=== PATIENT | male | born 1960 | race Caucasian/White ===

== ENCOUNTER 2017-11-29 17:08 | Emergency (ER) | payer MEDICAID ==
[~2017-11-29] VITALS: Ht 172.7 cm; Wt 85.0 kg
[2017-11-29] MEDS ORDERED: METF-960 PO (17:11)
[2017-11-29] MEDS ORDERED: ASPI-1182 PO (17:11)
[2017-11-29] MEDS ORDERED: ATOR10TA84 PO (17:11)
[2017-11-29] MEDS ORDERED: LISI-662 PO (17:11)
[2017-11-29 18:40] LABS: BASOPHILS % (AUTO) 0.3 % (0.0-2.0); EOSINOPHILS % (AUTO) 0.1 % (1.0-6.0); HEMATOCRIT 41.8 % (41-53); HEMOGLOBIN 14.1 g/dL (13.5-17.5); MEAN CORPUSCULAR HEMOGLOBIN 28.6 pg (26.0-34.0); MEAN CORPUSCULAR HGB CONC 33.7 G/dL (31.0-37.0); MEAN CORPUSCULAR VOLUME 85 fL (80-100); MONOCYTES # (AUTO) 0.7 K/uL (0.1-1.0); MONOCYTES % (AUTO) 8.3 % (2.0-9.0); NEUTROPHILS # (AUTO) 5.7 K/uL (1.8-7.7); NEUTROPHILS % (AUTO) 67.3 % (40.0-70.0); PLATELET COUNT (AUTO) 241 K/uL (150-450); RED BLOOD CELL COUNT(AUTO) 4.93 MIL/uL (4.50-5.90)
[2017-11-29 18:49] LABS: ANION GAP 9 mmol/L (8-16); CARBON DIOXIDE 29 mmol/L (22-29); CHLORIDE 106 mmol/L (98-107); CREATININE 1.16 mg/dL (0.60-1.30); GLOMERULAR FILTR. RATE CALC > 60 mL/min (>60); GLUCOSE,RANDOM 120 mg/dL (70-110); POTASSIUM 4.3 mmol/L (3.5-5.1); SODIUM SERUM 144 mmol/L (136-145); UREA NITROGEN, BLOOD 24 mg/dL (7-18)
[2017-11-29 18:54] LABS: ALANINE AMINOTRANSFERASE 43 U/L (12-78); ALBUMIN 3.6 g/dL (3.4-5.0); ALKALINE PHOSPHATASE 71 U/L (46-116); BILIRUBIN,TOTAL 0.4 mg/dL (0.1-1.0); C-REACTIVE PROTEIN QUANT 0.12 mg/dL (0.00-0.30); TOTAL PROTEIN, SERUM 7.5 g/dL (6.4-8.2)
[2017-11-29 19:09] LABS: ASPARTATE AMINOTRANSFERASE 39 U/L (15-37)
[2017-11-29 19:28] VITALS: BP 149/89
== END 2017-11-29 19:29 | disposition home or self-care (01) ==
LOC: EMS 17:10
DX: S90.121A Contusion of right lesser toe(s) without damage to nail, initial encounter (principal); L03.031 Cellulitis of right toe; E11.9 Type 2 diabetes mellitus without complications; I10 Essential (primary) hypertension; F17.210 Nicotine dependence, cigarettes, uncomplicated; Z79.82 Long term (current) use of aspirin; Z79.899 Other long term (current) drug therapy; Z79.84 Long term (current) use of oral hypoglycemic drugs; X58.XXXA Exposure to other specified factors, initial encounter; Y93.89 Activity, other specified; Y92.89 Other specified places as the place of occurrence of the external cause; Y99.8 Other external cause status
CPT/HCPCS: 86140; 99285

== ENCOUNTER 2018-02-07 08:49 | Emergency (ER) | payer SELFPAY ==
[~2018-02-07] VITALS: Ht 160 cm; Wt 85.0 kg
[~2018-02-07 08:49] MED LIST: ASPI-1182 PO; ATOR10TA84 PO; LISI-662 PO; METF-960 PO
[2018-02-07 09:03] LABS: GLUCOSE,POINT OF CARE 122 MG/DL (70-110)
[2018-02-07 09:22] VITALS: BP 154/108
== END 2018-02-07 12:16 | disposition home or self-care (01) ==
LOC: EMS 08:49
DX: L60.0 Ingrowing nail (principal); I10 Essential (primary) hypertension; E11.9 Type 2 diabetes mellitus without complications; F17.210 Nicotine dependence, cigarettes, uncomplicated; Z79.82 Long term (current) use of aspirin; Z79.84 Long term (current) use of oral hypoglycemic drugs
CPT/HCPCS: 11730